=== PATIENT | male | born 1955 | race Caucasian/White ===

== ENCOUNTER 2016-12-01 14:21 | Outpatient (CLI) | payer BC | END 2016-12-01 14:22 | disposition home or self-care (01) | LOC: CONVCARE 14:21 | PROVIDERS: ATTEND Orthopaedic Surgery | DX: G56.02 Carpal tunnel syndrome, left upper limb (principal); M25.542 Pain in joints of left hand; M25.541 Pain in joints of right hand; M25.561 Pain in right knee; M25.562 Pain in left knee; M25.511 Pain in right shoulder; M25.512 Pain in left shoulder | CPT/HCPCS: 36415; 85651 ==

== ENCOUNTER 2016-12-08 08:57 | Day surgery (SDC) | payer BC ==
[2016-12-08] MEDS ORDERED: MIDAZOLAM 2 MG/2 ML SOL ONE (09:51)
[2016-12-08] MEDS ORDERED: ONDANSETRON HCL 4 MG/2 ML SOL ONE (09:51)
[2016-12-08] MEDS ORDERED: PROPOFOL 10 MG/ML EMU IV ONE ×2 (09:51→09:52)
[2016-12-08] MEDS ORDERED: FENTANYL 100MCG/2ML SOL ONE (09:52)
[2016-12-08] MEDS ORDERED: LIDOCAINE HCL 1% MPF SOL ONE (10:40)
[2016-12-08] MEDS ORDERED: CEFAZOLIN SODIUM 1 GM PDS ONE (10:54)
[2016-12-08 12:18] VITALS: O2SAT 98
[2016-12-08 12:46] VITALS: BP 129/77; PULSE 57; RESP 20; TEMP 97.8
== END 2016-12-08 13:05 | disposition home or self-care (01) ==
LOC: SURG 08:57
PROVIDERS: ATTEND Orthopaedic Surgery
DX: G56.02 Carpal tunnel syndrome, left upper limb (principal)
CPT/HCPCS: 29848; J0690; J2001; J2250; J2405; J2704 ×2; J3010; A6402